=== PATIENT | male | born 1945 | race Caucasian/White ===

== ENCOUNTER → 2020-12-27 08:18 | Outpatient (CLI) | payer MEDICARE, SELFPAY ==
[2020-12-28 16:53] LABS: SARS-CoV-2 RNA PCR Negative
== END ==
PROVIDERS: PCP Internal Medicine; Visit Provider Internal Medicine
DX: Z20.822 Contact with and (suspected) exposure to COVID-19 (principal)
CPT/HCPCS: C9803; U0003; U0005